=== PATIENT | female | born 1975 | race Caucasian/White ===

== ENCOUNTER → 2019-12-15 13:55 | Outpatient (CLI) | payer OTHER, SELFPAY ==
--- NOTE | 2019-12-15 14:01 | US_ITS ---
PROCEDURE: US TRANSVAGINAL CLINICAL INDICATION: pelvic pain Pelvic pain with bleeding COMPARISON: None FINDINGS: There has been a prior hysterectomy. The vaginal cuff has an unremarkable appearance. Right ovary is 2 x 1.4 cm and contains a 1.6 cm cyst. Left ovary has an unremarkable appearance. No cul-de-sac fluid evident. IMPRESSION: Status post hysterectomy. Small right ovarian cyst Dictated by: Winston Lake MD 12/15/2019 16:41 Electronically signed by Winston Lake MD in [facility] 12/15/2019 16:41
== END ==
LOC: RAD 13:58
PROVIDERS: Visit Provider Nurse Practitioner Obstetrics & Gynecology
DX: R10.2 Pelvic and perineal pain (principal)
CPT/HCPCS: 76830

== ENCOUNTER → 2020-01-05 09:19 | Outpatient (CLI) | payer OTHER, SELFPAY ==
--- NOTE | 2020-01-05 09:19 | CT_ITS ---
PROCEDURE: CT ABDOMEN PELVIS WO/W CON CLINICAL INDICATION: hematuria COMPARISON: No exams were available for comparison TECHNIQUE: IV Contrast: 75ML OPTIRAY 350 Oral Contrast 20ml Gastroview Axial images obtained with sagittal and coronal reformats. All CT scans at the facility use one or more dose reduction, viz: automated exposure control, ma/kV adjustment per patient size (including targeted exams where dose is matched to indication, i.e. head), or iterative reconstruction technique. FINDINGS: LOWER THORAX: No acute finding ABDOMEN & PELVIS: The liver, spleen, adrenal glands, and pancreas have an unremarkable appearance. No renal or ureteral calculi. No hydronephrosis. No renal mass. The urinary bladder has an unremarkable appearance. There are post hysterectomy changes. There is a 3 cm right ovarian cyst. Surgical clips are present in the pelvis. No evidence of appendicitis or diverticulitis. No intestinal obstruction or free air. There is a tiny umbilical hernia which contains fat. No acute bony anomalies. IMPRESSION: 1. Unremarkable appearing kidneys ureters and urinary bladder. No renal or ureteral calculi. 2. 3 cm right ovarian cyst Dictated by: Winston Lake MD 01/06/2020 09:26 Electronically signed by Winston Lake MD in [facility] 01/06/2020 09:26
== END ==
PROVIDERS: PCP Family Medicine; Visit Provider Urology
DX: R31.9 Hematuria, unspecified (principal); R35.0 Frequency of micturition
CPT/HCPCS: 74178; Q9967

== ENCOUNTER → 2020-01-14 11:29 | Outpatient (CLI) | payer OTHER, SELFPAY ==
[2020-01-14 12:23] LABS: Coronavirus 19 IgG Antibody Negative (Negative); Coronavirus 19 IgM Antibody Negative (Negative)
== END ==
PROVIDERS: Visit Provider Urology
DX: Z01.818 Encounter for other preprocedural examination (principal); R31.9 Hematuria, unspecified
CPT/HCPCS: 36415; 86328

== ENCOUNTER 2020-01-14 11:49 | Day surgery (SDC) | payer OTHER, SELFPAY ==
[2020-01-13 13:43] VITALS: BMI 25.6
[2020-01-14 12:08] VITALS: BP 130/82; PULSE 66; RESP 18; TEMP 36.9; O2SAT 100
[2020-01-14 13:24] VITALS: BP 141/73; PULSE 76; RESP 18; TEMP 36.5; O2SAT 98
[2020-01-14 13:33] VITALS: BP 141/73; PULSE 76; RESP 18; O2SAT 98
--- NOTE | 2020-01-14 13:34 | [facility].OPNOTE ---
Date of procedure: 01/14/20 Pre-op Diagnosis:: Gross hematuria Post-op Diagnosis:: Same Procedure performed:: Cystourethroscopy Surgeon:: Maurice Schmitz MD Anesthesia: local Estimated blood loss (mL): 0 Clinical Note:: 44-year-old white female with episodes of gross hematuria presents for cystoscopic evaluation. CT scan has revealed no evidence of urologic abnormalities. Operative findings:: Normal bladder and urethra Operative note:: Patient taken to the treatment room after informed consent was obtained. On the stretcher she was placed in the frog-leg position. She was prepped and draped in the standard surgical fashion and 2% lidocaine placed into the urethra. After 5 minutes the flexible cystoscope was passed into the urethra which was a little stenotic. We were able to pass the scope into the bladder and the bladder examined in a systematic fashion. There is no evidence of mucosal abnormalities, stones, trabeculation or diverticula. The ureteral orifices in their normal anatomic position with clear reflux of urine. Scope was retroflexed showing no evidence of bladder neck abnormalities. Urethra was examined on the way out and was within normal limits. Patient tolerated procedure well there are no complications. We discussed the findings today and she was reassured there is no evidence of any suspicious abnormalities for her recent gross hematuria. Condition: stable Disposition: observation Specimens:: None Complications:: None
== END 2020-01-14 13:33 | disposition home or self-care (01) ==
LOC: OUTP 11:50
PROVIDERS: PCP Family Medicine; Visit Provider Urology
PROC: (CPT 52000; principal; 2020-01-14 13:00)
DX: R31.0 Gross hematuria (principal); R35.0 Frequency of micturition; Z88.8 Allergy status to other drugs, medicaments and biological substances; Z79.899 Other long term (current) drug therapy; Z87.440 Personal history of urinary (tract) infections; R56.9 Unspecified convulsions; Z90.711 Acquired absence of uterus with remaining cervical stump; Z82.49 Family history of ischemic heart disease and other diseases of the circulatory system; Z82.3 Family history of stroke
CPT/HCPCS: 52000

== ENCOUNTER → 2021-02-28 16:10 | Outpatient (CLI) | payer OTHER, SELFPAY ==
[2021-02-28 16:30] LABS: Basophils # 0.1 K/mm3 (0-0.2); Eosinophils # 0.1 K/mm3 (0.0-0.4); Eosinophils % 1.5 % (0.1-12.0); Hematocrit 43.8 % (37.0-47.0); Hemoglobin 14.3 g/dL (12.2-16.2); Lymphocytes % 25.5 % (10-50); Mean Corpuscular HGB Conc 32.7 g/dL (31.8-35.4); Mean Corpuscular Hemoglobin 29.2 pg (27.0-31.2); Monocytes # 0.4 K/mm3 (0.1-1.0); Monocytes % 5.5 % (1.7-9.3); Neutrophils # 5.3 K/mm3 (1.8-7.8); Neutrophils % 66.6 % (37.0-80.0); Platelet Count 315 K/mm3 (142-424); Red Blood Count 4.92 M/mm3 (4.20-5.40); Red Cell Distribution Width 13.1 % (11.5-17.5)
[2021-02-28 16:54] LABS: Chloride 103 mmol/L (98-107); Potassium 4.1 mmoL/L (3.5-5.1); Sodium 139 mmol/L (136-145)
[2021-02-28 16:57] LABS: Alanine Aminotransferase 14 U/L (12-78); Albumin Level 4.5 g/dl (3.5-5.0); Albumin/Globulin Ratio 1.7 (1.1-1.8); Alkaline Phosphatase 76 U/L (38-126); Anion Gap 10.1 mEq/L (5-15); Aspartate Amino Transferase 23 U/L (14-36); Bilirubin,Total 0.4 mg/dl (0.2-1.3); Blood Urea Nitrogen 8 mg/dl (7-17); Calcium 9.1 mg/dl (8.4-10.2); Carbon Dioxide 30 mmol/L (22.0-30.0); Cholesterol 133 mg/dl (140-200); Estimated Glomerular Filt Rate 77 ml/min (>60); GFR (African American) 93 ML/MIN (>60); Globulin 2.7 g/dL (1.3-3.2); Glucose 91 mg/dl (74-100); HDL Cholesterol 44 mg/dl (40-60); Total Protein,Serum 7.2 g/dl (6.3-8.2); Triglycerides 59 mg/dl (30-150); VLDL Cholesterol 12 mg/dL (0-40)
[2021-02-28 17:08] LABS: Direct LDL Cholesterol 70.48 mg/dL (100-129)
== END ==
PROVIDERS: Visit Provider Nurse Practitioner Obstetrics & Gynecology
DX: Z01.419 Encounter for gynecological examination (general) (routine) without abnormal findings (principal); N95.1 Menopausal and female climacteric states
CPT/HCPCS: 36415; 80053; 80061; 83001; 83002; 85025

== ENCOUNTER → 2021-03-10 13:51 | Outpatient (CLI) | payer OTHER, SELFPAY ==
--- NOTE | 2021-03-10 13:52 | US_ITS ---
PROCEDURE: US TRANSVAGINAL CLINICAL INDICATION: RLQ PAIN,OVARIAN CYST COMPARISON: US US TRANSVAGINAL from 12/15/[address] ABDOMEN PELVIS WO/W CON from 01/05/2020 FINDINGS: There has been a prior hysterectomy. Vaginal cuff has an unremarkable appearance. No abnormal fluid collections. LEFT OVARY: [id number] with a volume of 1.3ml. Left ovary is difficult to visualize and not readily discernible due to overlying bowel There are 2 small right ovarian cyst at 12 and 13 mm. The 13 mm cyst does demonstrate some lobulation. No cul-de-sac fluid is evident. IMPRESSION: Prior hysterectomy. There are 2 right ovarian cyst 1 simple and 1 complex. They are both less than 2 cm. Left ovary is not clearly identified. Dictated by: Winston Lake MD 03/10/2021 15:00 Winston Lake MD in [facility] 03/10/2021 15:00
== END ==
LOC: RAD 13:52
PROVIDERS: PCP Family Medicine; Visit Provider Nurse Practitioner Obstetrics & Gynecology
DX: R10.31 Right lower quadrant pain (principal); N83.209 Unspecified ovarian cyst, unspecified side
CPT/HCPCS: 76830